=== PATIENT | male | born 1960 | race Caucasian/White ===

== ENCOUNTER 2024-08-09 14:51 | Outpatient (CLI) | payer MEDICARE, OTHER | END 2024-08-09 14:52 | disposition home or self-care (01) | LOC: SCSMRI 14:51 | PROVIDERS: ATTEND Family Medicine Sports Medicine | DX: M47.26 Other spondylosis with radiculopathy, lumbar region (principal); M47.815 Spondylosis without myelopathy or radiculopathy, thoracolumbar region; M47.817 Spondylosis without myelopathy or radiculopathy, lumbosacral region | CPT/HCPCS: 72148 ==